=== PATIENT | female | born 2000 | race African-American/Black ===

== ENCOUNTER 2020-02-22 22:16 | Emergency (ER) | payer MEDICAID, OTHER ==
[~2020-02-22] VITALS: Ht 167.6 cm; Wt 67.1 kg
[2020-02-22 23:06] LABS: Urine Bacteria FEW /hpf (None Seen); Urine Blood 2+ /uL (Negative); Urine Specific Gravity 1.007 (1.001-1.035); Urine WBC 7 /hpf (0 - 5)
[2020-02-22 23:52] LABS: Basophils # (auto) 0 10 ^3/uL (0-0.2); Basophils % (auto) 0.2 % (0.0-2.0); Eosinophils # (auto) 0 10 ^3/uL (0-0.8); Eosinophils % (auto) 0.5 % (0.0-7.0); Hemoglobin 10.6 g/dL (12.2-16.2); Lymphocytes # (auto) 1.4 10 ^3/uL (0.4-5.4); Lymphocytes % (auto) 21.7 % (10.0-50.0); Mean Corpuscular Hemoglobin 25.9 pg (28.0-32.0); Mean Corpuscular Hgb Conc. 34.3 g/dL (32.0-36.0); Mean Corpuscular Volume 75.5 fL (80.0-100.0); Monocytes # (auto) 0.8 10 ^3/uL (0-1.3); Monocytes % (auto) 12.5 % (0.0-12.0); Neutrophils # (auto) 4.2 10 ^3/uL (1.6-8.6); Neutrophils % (auto) 65.1 % (37.0-80.0); Nucleated Red Blood Cells % 0.1 %; Platelet Count (auto) 127 10^3/uL (140-450); Red Blood Cells 4.11 10^6/uL (4.0-5.20); Red Cell Distribution Width 15.4 % (11.8-14.3); White Blood Cell 6.4 10^3/uL (4.4-10.8)
[2020-02-22 23:56] VITALS: BP 102/57
[2020-02-23 00:10] LABS: Albumin 2.9 g/dL (3.4-5.0); Calcium 8.7 mg/dL (8.5-10.1); Potassium 3.6 mmol/L (3.5-5.1)
[2020-02-23 00:13] LABS: BUN/Creatinine Ratio 5.9
[2020-02-23 00:25] LABS: Bilirubin, Total 0.3 mg/dL (0.2-1.0); Total Protein 6.3 g/dL (6.4-8.2)
== END 2020-02-23 01:12 | disposition home or self-care (01) ==
LOC: ER 22:18
DX: O43.112 Circumvallate placenta, second trimester (principal); O23.42 Unspecified infection of urinary tract in pregnancy, second trimester; Z3A.19 19 weeks gestation of pregnancy
CPT/HCPCS: 36415; 76805; 80053; 81001; 84702; 85025

== ENCOUNTER 2020-05-31 07:10 | Observation (INO) | payer MEDICAID ==
[~2020-05-31] VITALS: Ht 167.6 cm; Wt 78.9 kg
[2020-05-31] MEDS ORDERED: PREN-96 PO (07:38)
[2020-05-31] MEDS ORDERED: LACTATED RINGER'S 1,000 ML IV ONE (08:00)
[2020-05-31] MEDS: TERBUTALINE SULFATE 1 MG/ML 1ML VIAL SC SCH ×2 (08:40→10:14)
[2020-05-31] MEDS ORDERED: BETAMETHASONE ACET (6MG/ML) 5ML VIAL IM ONE (08:45)
[2020-05-31] MEDS ORDERED: NIF10C PO (11:32)
== END 2020-05-31 11:46 | disposition home or self-care (01) ==
LOC: LDRP 07:10
PROVIDERS: ADMIT Specialist; ATTEND Specialist
DX: O26.893 Other specified pregnancy related conditions, third trimester (principal); R31.9 Hematuria, unspecified; R10.9 Unspecified abdominal pain; R10.2 Pelvic and perineal pain; Z3A.33 33 weeks gestation of pregnancy
CPT/HCPCS: 59025; 76805; 81002; 94760; 96360; 96361; 96372; G0378; J0702; J3105

== ENCOUNTER 2020-06-01 10:02 | Observation (INO) | payer MEDICAID ==
[~2020-06-01] VITALS: Ht 167.6 cm; Wt 78.9 kg
[~2020-06-01 10:02] MED LIST: NIF10C PO; PREN-96 PO
[2020-06-01] MEDS ORDERED: BETAMETHASONE ACET (30mg/5ml) 5ml Vial 6mg/ml IM ONE (10:15)
== END 2020-06-01 11:13 | disposition home or self-care (01) ==
LOC: LDRP 10:02
PROVIDERS: ADMIT Obstetrics & Gynecology; ATTEND Obstetrics & Gynecology
DX: O60.03 Preterm labor without delivery, third trimester (principal); O46.93 Antepartum hemorrhage, unspecified, third trimester; Z3A.33 33 weeks gestation of pregnancy
CPT/HCPCS: 59025; 81002; 94760; 96372; G0378

== ENCOUNTER 2020-06-02 10:30 | Observation (INO) | payer MEDICAID ==
[~2020-06-02] VITALS: Ht 30.5 cm; Wt 0.5 kg
[2020-06-02] MEDS ORDERED: cefTRIAXone 1GM/50ML D5W 50 ML IV ONE (11:30)
[2020-06-02 12:55] LABS: Urine Bacteria NONE SEEN /hpf (None Seen); Urine Blood 3+ /uL (Negative); Urine Hyaline Cast FEW /lpf (0 - 2); Urine Specific Gravity 1.005 (1.001-1.035); Urine WBC 16 /hpf (0 - 5); Urine WBC Clumps PRESENT /hpf (None Seen)
[2020-06-02] MEDS ORDERED: SODIUM CHLORIDE 0.9% 1,000 ML IV SCH ×2 (14:15→17:45)
[2020-06-02] MEDS ORDERED: TERBUTALINE SULFATE 1 MG/ML 1ML VIAL SC SCH (15:45)
[2020-06-02 17:02] LABS: Basophils # (auto) 0 10 ^3/uL (0-0.2); Basophils % (auto) 0.1 % (0.0-2.0); Eosinophils # (auto) 0 10 ^3/uL (0-0.8); Eosinophils % (auto) 0.1 % (0.0-7.0); Hematocrit 30.2 % (36.0-46.0); Hemoglobin 10.4 g/dL (12.2-16.2); Lymphocytes # (auto) 1.3 10 ^3/uL (0.4-5.4); Lymphocytes % (auto) 13.4 % (10.0-50.0); Mean Corpuscular Hemoglobin 27.8 pg (28.0-32.0); Mean Corpuscular Hgb Conc. 34.3 g/dL (32.0-36.0); Mean Corpuscular Volume 81.1 fL (80.0-100.0); Monocytes # (auto) 1.4 10 ^3/uL (0-1.3); Monocytes % (auto) 13.7 % (0.0-12.0); Neutrophils # (auto) 7.2 10 ^3/uL (1.6-8.6); Neutrophils % (auto) 72.7 % (37.0-80.0); Nucleated Red Blood Cells % 0.1 %; Platelet Count (auto) 133 10^3/uL (140-450); Red Blood Cells 3.73 10^6/uL (4.0-5.20); White Blood Cell 9.9 10^3/uL (4.4-10.8)
[2020-06-02 17:23] LABS: Albumin 2.5 g/dL (3.4-5.0); Calcium 7.9 mg/dL (8.5-10.1); Potassium 3.2 mmol/L (3.5-5.1)
[2020-06-02 17:26] LABS: BUN/Creatinine Ratio 8.7
[2020-06-02 17:29] LABS: Bilirubin, Total 0.2 mg/dL (0.2-1.0); Total Protein 5.8 g/dL (6.4-8.2)
[2020-06-02 17:32] LABS: Alcohol, Urine < 3.0 mg/dL (0-10); Amphetamine Screen, Urine POSITIVE (NEGATIVE); Barbiturate Scree,Urine NEGATIVE (NEGATIVE); Benzodiazephine Screen, Urine NEGATIVE (NEGATIVE); Cannabinoid Screen, Urine NEGATIVE (NEGATIVE); Cocaine Screen, Urine NEGATIVE (NEGATIVE); Opiate Scree,Urine NEGATIVE (NEGATIVE); Phencyclidine Screen, Urine NEGATIVE (NEGATIVE)
[2020-06-02] MEDS ORDERED: LACTATED RINGER'S 1,000 ML IV ONE (19:30)
[2020-06-02] MEDS ORDERED: LACTATED RINGER'S 1,000 ML IV SCH (19:30)
[2020-06-02] MEDS ORDERED: POTASSIUM CHL 20 Meq TABLET PO ONE (20:00)
[2020-06-02 20:42] LABS: Alcohol, Urine < 3.0 mg/dL (0-10); Amphetamine Screen, Urine NEGATIVE (NEGATIVE); Barbiturate Scree,Urine NEGATIVE (NEGATIVE); Benzodiazephine Screen, Urine NEGATIVE (NEGATIVE); Cannabinoid Screen, Urine NEGATIVE (NEGATIVE); Cocaine Screen, Urine NEGATIVE (NEGATIVE); Opiate Scree,Urine NEGATIVE (NEGATIVE); Phencyclidine Screen, Urine NEGATIVE (NEGATIVE)
[2020-06-03] MEDS ORDERED: cefTRIAXone 1GM/50ML D5W 50 ML IV SCH (09:00)
[2020-06-03] MEDS ORDERED: NIFEdipine 10 MG CAP PO SCH (19:00)
== END 2020-06-02 21:47 | disposition home or self-care (01) ==
LOC: LDRP 10:30
PROVIDERS: ADMIT Specialist; ATTEND Specialist
DX: O23.43 Unspecified infection of urinary tract in pregnancy, third trimester (principal); O26.893 Other specified pregnancy related conditions, third trimester; R10.31 Right lower quadrant pain; Z3A.33 33 weeks gestation of pregnancy; Z79.899 Other long term (current) drug therapy
CPT/HCPCS: 36415; 59025; 76775; 76815; 76817; 76818; 80053; 80307; 81001; 81002; 85025; 87086; 94760; 94762; 96361; 96365; 96372; G0378; J0696; J3105; J7030; 96360

== ENCOUNTER 2020-06-04 18:52 | Observation (INO) | payer MEDICAID ==
[~2020-06-04] VITALS: Ht 167.6 cm; Wt 60.8 kg
[2020-06-04] MEDS ORDERED: CEPH500C PO (19:28)
[2020-06-04] MEDS ORDERED: TERBUTALINE SULFATE 1 MG/ML 1ML VIAL SC SCH (20:00)
[2020-06-04] MEDS ORDERED: NIFEdipine 10 MG CAP PO ONE (20:00)
[2020-06-04 21:07] LABS: Alcohol, Urine < 3.0 mg/dL (0-10); Amphetamine Screen, Urine NEGATIVE (NEGATIVE); Barbiturate Scree,Urine NEGATIVE (NEGATIVE); Benzodiazephine Screen, Urine NEGATIVE (NEGATIVE); Cannabinoid Screen, Urine NEGATIVE (NEGATIVE); Cocaine Screen, Urine NEGATIVE (NEGATIVE); Opiate Scree,Urine NEGATIVE (NEGATIVE); Phencyclidine Screen, Urine NEGATIVE (NEGATIVE)
== END 2020-06-04 21:36 | disposition home or self-care (01) ==
LOC: LDRP 18:52
PROVIDERS: ADMIT Obstetrics & Gynecology; ATTEND Obstetrics & Gynecology
DX: O60.03 Preterm labor without delivery, third trimester (principal); O36.8130 Decreased fetal movements, third trimester, not applicable or unspecified; O34.63 Maternal care for abnormality of vagina, third trimester; N89.8 Other specified noninflammatory disorders of vagina; Z3A.33 33 weeks gestation of pregnancy; Z79.899 Other long term (current) drug therapy
CPT/HCPCS: 59025; 80307; 81002; 96372; G0378; J3105

== ENCOUNTER 2020-06-08 11:10 | Observation (INO) | payer MEDICAID ==
[~2020-06-08 11:10] MED LIST changes: +CEPH500C PO
== END 2020-06-08 13:50 | disposition home or self-care (01) ==
LOC: LDRP 11:10
PROVIDERS: ADMIT Specialist; ATTEND Specialist
DX: O60.03 Preterm labor without delivery, third trimester (principal); O43.113 Circumvallate placenta, third trimester; Z3A.34 34 weeks gestation of pregnancy
CPT/HCPCS: 59025; 76817; 76818; 81002; G0378

== ENCOUNTER 2020-06-16 10:09 | Observation (INO) | payer MEDICAID | END 2020-06-16 12:22 | disposition home or self-care (01) | LOC: LDRP 10:09 | PROVIDERS: ADMIT Specialist; ATTEND Specialist | DX: O60.03 Preterm labor without delivery, third trimester (principal); O43.113 Circumvallate placenta, third trimester; Z3A.35 35 weeks gestation of pregnancy | CPT/HCPCS: 59025; 76817; 76818; 81002; 94760; G0378 ==

== ENCOUNTER 2020-06-23 10:33 | Observation (INO) | payer MEDICAID ==
[~2020-06-23 10:33] MED LIST changes: -CEPH500C PO
[2020-06-23 14:03] LABS: Basophils # (auto) 0 10 ^3/uL (0-0.2); Basophils % (auto) 0.3 % (0.0-2.0); Eosinophils # (auto) 0.1 10 ^3/uL (0-0.8); Eosinophils % (auto) 0.7 % (0.0-7.0); Hematocrit 32.1 % (36.0-46.0); Lymphocytes # (auto) 1.5 10 ^3/uL (0.4-5.4); Lymphocytes % (auto) 15.5 % (10.0-50.0); Mean Corpuscular Hemoglobin 27.6 pg (28.0-32.0); Mean Corpuscular Hgb Conc. 34.4 g/dL (32.0-36.0); Mean Corpuscular Volume 80.2 fL (80.0-100.0); Monocytes # (auto) 1.2 10 ^3/uL (0-1.3); Neutrophils # (auto) 7.1 10 ^3/uL (1.6-8.6); Neutrophils % (auto) 71.5 % (37.0-80.0); Nucleated Red Blood Cells % 0.1 %; Red Cell Distribution Width 14.1 % (11.8-14.3); White Blood Cell 9.8 10^3/uL (4.4-10.8)
[2020-06-24 08:06] LABS: RPR Non Reactive (Non Reactive)
== END 2020-06-23 13:54 | disposition home or self-care (01) ==
LOC: LDRP 10:50
PROVIDERS: ADMIT Obstetrics & Gynecology; ATTEND Obstetrics & Gynecology
DX: O60.03 Preterm labor without delivery, third trimester (principal); Z3A.36 36 weeks gestation of pregnancy
CPT/HCPCS: 36415; 59025; 76818; 81002; 85025; 86592; 87081; G0378

== ENCOUNTER 2020-06-29 16:15 | Observation (INO) | payer MEDICAID ==
[2020-06-29 17:32] LABS: Basophils # (auto) 0 10 ^3/uL (0-0.2); Basophils % (auto) 0.3 % (0.0-2.0); Eosinophils # (auto) 0.1 10 ^3/uL (0-0.8); Eosinophils % (auto) 0.5 % (0.0-7.0); Hematocrit 34.5 % (36.0-46.0); Lymphocytes # (auto) 1.5 10 ^3/uL (0.4-5.4); Lymphocytes % (auto) 13.3 % (10.0-50.0); Mean Corpuscular Hemoglobin 27.7 pg (28.0-32.0); Mean Corpuscular Hgb Conc. 34.7 g/dL (32.0-36.0); Mean Corpuscular Volume 80.1 fL (80.0-100.0); Monocytes # (auto) 1.5 10 ^3/uL (0-1.3); Monocytes % (auto) 13.6 % (0.0-12.0); Neutrophils # (auto) 8.1 10 ^3/uL (1.6-8.6); Neutrophils % (auto) 72.3 % (37.0-80.0); Nucleated Red Blood Cells % 0.1 %; Platelet Count (auto) 165 10^3/uL (140-450); Red Blood Cells 4.31 10^6/uL (4.0-5.20); Red Cell Distribution Width 14.4 % (11.8-14.3); White Blood Cell 11.2 10^3/uL (4.4-10.8)
[2020-06-29 17:45] LABS: Alcohol, Urine < 3.0 mg/dL (0-10); Amphetamine Screen, Urine NEGATIVE (NEGATIVE); Barbiturate Scree,Urine NEGATIVE (NEGATIVE); Benzodiazephine Screen, Urine NEGATIVE (NEGATIVE); Cannabinoid Screen, Urine NEGATIVE (NEGATIVE); Cocaine Screen, Urine NEGATIVE (NEGATIVE); Opiate Scree,Urine NEGATIVE (NEGATIVE); Phencyclidine Screen, Urine NEGATIVE (NEGATIVE)
[2020-07-01 06:06] LABS: RPR Non Reactive (Non Reactive)
== END 2020-06-29 19:28 | disposition home or self-care (01) ==
LOC: LDRP 16:15
PROVIDERS: ADMIT Obstetrics & Gynecology; ATTEND Obstetrics & Gynecology
DX: O46.93 Antepartum hemorrhage, unspecified, third trimester (principal); Z3A.37 37 weeks gestation of pregnancy
CPT/HCPCS: 36415; 59025; 76805; 76817; 76818; 80307; 81002; 85025; 86592; 94760; G0378

== ENCOUNTER 2020-07-06 11:47 | Observation (INO) | payer MEDICAID | END 2020-07-06 12:46 | disposition home or self-care (01) | LOC: LDRP 11:47 | PROVIDERS: ADMIT Obstetrics & Gynecology; ATTEND Obstetrics & Gynecology | DX: O43.113 Circumvallate placenta, third trimester (principal); O62.9 Abnormality of forces of labor, unspecified; Z3A.38 38 weeks gestation of pregnancy | CPT/HCPCS: 59025; 76818; 81002; G0378 ==

== ENCOUNTER 2020-07-14 10:40 | Observation (INO) | payer MEDICAID ==
[~2020-07-14] VITALS: Ht 167.6 cm; Wt 78.9 kg
== END 2020-07-14 13:55 | disposition home or self-care (01) ==
LOC: LDRP 10:40
PROVIDERS: ADMIT Obstetrics & Gynecology; ATTEND Obstetrics & Gynecology
DX: O62.9 Abnormality of forces of labor, unspecified (principal); Z3A.39 39 weeks gestation of pregnancy
CPT/HCPCS: 59025; 76818; 81002; G0378

== ENCOUNTER 2020-07-15 11:35 | Inpatient (IN) | payer MEDICAID ==
[~2020-07-15] VITALS: Ht 30.5 cm; Wt 0.5 kg
[2020-07-15 13:07] LABS: Urine Bacteria FEW /hpf (None Seen); Urine Blood 3+ /uL (Negative); Urine Specific Gravity 1.012 (1.001-1.035); Urine WBC 25 /hpf (0 - 5); Urine WBC Clumps PRESENT /hpf (None Seen)
[2020-07-15] MEDS ORDERED: DERMOPLAST 60ML BOTTLE TOP PRN (13:15)
[2020-07-15] MEDS ORDERED: PENICILLIN G POT 5MIL/D5 50ML 50 ML IV ONE (13:15)
[2020-07-15] MEDS ORDERED: PROMETHAZINE HCL 25 MG/ML 1ML IV PRN (13:15)
[2020-07-15] MEDS ORDERED: WITCH HAZEL-GLYCERIN PAD TOP PRN (13:15)
[2020-07-15] MEDS ORDERED: PHISODERM TOP SOLN 240ML BTL TOP PRN (13:15)
[2020-07-15] MEDS ORDERED: LIDOCAINE 2%HCL (LOCAL ANESTH.) INJ 20ML MDV IJ PRN (13:15)
[2020-07-15 13:19] LABS: Alcohol, Urine < 3.0 mg/dL (0-10); Amphetamine Screen, Urine NEGATIVE (NEGATIVE); Barbiturate Scree,Urine NEGATIVE (NEGATIVE); Benzodiazephine Screen, Urine NEGATIVE (NEGATIVE); Cannabinoid Screen, Urine NEGATIVE (NEGATIVE); Cocaine Screen, Urine NEGATIVE (NEGATIVE); Opiate Scree,Urine NEGATIVE (NEGATIVE); Phencyclidine Screen, Urine NEGATIVE (NEGATIVE)
[2020-07-15] MEDS: BUTORPHANOL TARTRATE 2 MG/1 ML VIAL IV PRN ×2 (13:41→17:29)
[2020-07-15 13:45] LABS: Basophils # (auto) 0.1 10 ^3/uL (0-0.2); Basophils % (auto) 0.5 % (0.0-2.0); Eosinophils # (auto) 0 10 ^3/uL (0-0.8); Eosinophils % (auto) 0.3 % (0.0-7.0); Hemoglobin 13.4 g/dL (12.2-16.2); Lymphocytes # (auto) 1.3 10 ^3/uL (0.4-5.4); Lymphocytes % (auto) 11.7 % (10.0-50.0); Mean Corpuscular Hemoglobin 27.6 pg (28.0-32.0); Mean Corpuscular Hgb Conc. 34.3 g/dL (32.0-36.0); Mean Corpuscular Volume 80.4 fL (80.0-100.0); Monocytes # (auto) 1.4 10 ^3/uL (0-1.3); Monocytes % (auto) 12.3 % (0.0-12.0); Neutrophils # (auto) 8.5 10 ^3/uL (1.6-8.6); Neutrophils % (auto) 75.2 % (37.0-80.0); Nucleated Red Blood Cells % 0.2 %; Red Blood Cells 4.85 10^6/uL (4.0-5.20); Red Cell Distribution Width 14.5 % (11.8-14.3); White Blood Cell 11.4 10^3/uL (4.4-10.8)
[2020-07-15 13:56] LABS: INR 0.92 (0.9-1.15)
[2020-07-15] MEDS: LACTATED RINGER'S 1,000 ML IV SCH ×4 (13:56→22:04)
[2020-07-15 14:02] LABS: Albumin 2.9 g/dL (3.4-5.0); Calcium 9.4 mg/dL (8.5-10.1); Potassium 3.6 mmol/L (3.5-5.1)
[2020-07-15 14:05] LABS: BUN/Creatinine Ratio 8.6; Bilirubin, Total 0.5 mg/dL (0.2-1.0); Total Protein 7.3 g/dL (6.4-8.2)
[2020-07-15] MEDS ORDERED: ePHEDrine SULFATE 50 MG/ML AMP IV ONE (17:30)
[2020-07-15] MEDS ORDERED: LIDOCAINE HCL 2 %PF INJ 10ML AMP IJ ONE (17:30)
[2020-07-15] MEDS ORDERED: ROPIVACAINE HCL 200 ML EPI SCH ×2 (17:30→18:30)
[2020-07-15] MEDS ORDERED: NALOXONE HCL 0.4 MG/ML VIAL IV ONE (17:30)
[2020-07-15] MEDS ORDERED: LACTATED RINGER'S 500 ML IV ONE (17:30)
[2020-07-15] MEDS ORDERED: fentaNYL CITRATE 100 MCG/2 ML VL IV ONE (17:30)
[2020-07-15] MEDS: PENICILLIN G POTASSIUM 2,500,000 UNITS in D5W 5% 50 ML IV SCH ×2 (17:44→21:42)
[2020-07-15] MEDS ORDERED: LACT. RINGERS/OXYTOCIN 20UNITS 500 ML IV ONE ×2 (17:45→18:15)
[2020-07-16] MEDS: LACTATED RINGER'S 1,000 ML IV SCH (00:06)
[2020-07-16] MEDS: PENICILLIN G POTASSIUM 2,500,000 UNITS in D5W 5% 50 ML IV SCH (01:15)
[2020-07-16] MEDS ORDERED: LIDOCAINE 2%HCL (LOCAL ANESTH.) INJ 20ML MDV ONE (01:43)
[2020-07-16] MEDS ORDERED: RHO (D) IMMUNE GLOBULIN 300 MCG INJ IM ONE (04:30)
[2020-07-16 07:00] VITALS: BP 119/61
[2020-07-16 07:07] LABS: RPR Non Reactive (Non Reactive)
[2020-07-16] MEDS: IBUPROFEN 600 MG TAB PO PRN ×3 (07:09→20:32)
[2020-07-16 11:00] VITALS: BP 122/68
[2020-07-16 15:00] VITALS: BP 110/55
[2020-07-16 19:00] VITALS: BP 103/56
[2020-07-16 23:00] VITALS: BP 113/57
[2020-07-17] VITALS (7 sets, daily range): BP systolic 103–124; BP diastolic 53–66
[2020-07-17] MEDS: IBUPROFEN 600 MG TAB PO PRN ×2 (13:44→20:58)
[2020-07-17] MEDS ORDERED: TETANUS-DIPTH-ACEL PERTUSSIS 0.5ML SYR Tdap IM ONE (22:45)
[2020-07-18 03:00] VITALS: BP 105/59
[2020-07-18 07:30] VITALS: BP 117/68
[2020-07-18 11:30] VITALS: BP 108/62
== END 2020-07-18 13:45 | disposition home or self-care (01) | DRG 560 ==
LOC: LDRP 11:35
PROVIDERS: ADMIT Specialist; ATTEND Specialist
PROC: 10907ZC Drainage of Amniotic Fluid, Therapeutic from Products of Conception, Via Natural or Artificial Opening (ICD-10-PCS; 2020-07-15)
PROC: 10E0XZZ Delivery of Products of Conception, External Approach (ICD-10-PCS; principal; 2020-07-16)
PROC: 3E0234Z Introduction of Serum, Toxoid and Vaccine into Muscle, Percutaneous Approach (ICD-10-PCS; 2020-07-16)
PROC: 3E0R3BZ Introduction of Anesthetic Agent into Spinal Canal, Percutaneous Approach (ICD-10-PCS; 2020-07-16)
PROC: 00HU33Z Insertion of Infusion Device into Spinal Canal, Percutaneous Approach (ICD-10-PCS; 2020-07-16)
PROC: 0UQGXZZ Repair Vagina, External Approach (ICD-10-PCS; 2020-07-16)
DX: O99.824 Streptococcus B carrier state complicating childbirth (principal); O99.345 Other mental disorders complicating the puerperium; F43.22 Adjustment disorder with anxiety; O69.81X0 Labor and delivery complicated by cord around neck, without compression, not applicable or unspecified; Z20.822 Contact with and (suspected) exposure to COVID-19; Z37.0 Single live birth; Z3A.39 39 weeks gestation of pregnancy; O70.0 First degree perineal laceration during delivery; O26.893 Other specified pregnancy related conditions, third trimester; Z67.21 Type B blood, Rh negative
CPT/HCPCS: 36415; 59025; 59409; 62282; 76818; 80053; 80307; 81001; 81002; 85025; 85610; 85730; 86592; 86850; 86900; 86901; 87426; 90384; 90715; 94760; 96360; 96361; 96365; 96366; 96372; G0378; J2540; J2590; J7060